=== PATIENT | female | born 1950 | race Caucasian/White ===

== ENCOUNTER → 2017-12-15 | Outpatient (CLI) | payer MEDICARE ==
[~2017-12-15] MED LIST: ACYC-57 PO; ATOR10TA PO; LEVO100T5 PO; MELA1TAB6 PO; MULT1TAB60 PO; VENL75TA PO
[2017-12-15 12:36] LABS: BASOPHILS # (AUTO) 0.04 x10^3/uL (0-0.1); BASOPHILS % (AUTO) 1 % (0-1); EOSINOPHILS # (AUTO) 0.19 x10^3/uL (0-0.4); EOSINOPHILS % (AUTO) 3 % (1-7); LYMPHOCYTES # (AUTO) 1.67 x10^3/uL (1-3.4); LYMPHOCYTES % (AUTO) 23 % (22-44); MD NO; MEAN CORPUSCULAR HEMOGLOBIN 30.1 pg (27.0-34.8); MEAN CORPUSCULAR HGB CONC 33.1 g/dL (32.4-35.8); MEAN CORPUSCULAR VOLUME 90.9 fL (80-100); MEAN PLATELET VOLUME 8.9 fL (7.4-10.4); MONOCYTES # (AUTO) 0.39 x10^3/uL (0.2-0.8); MONOCYTES % (AUTO) 5 % (2-9); NEUTROPHILS # (AUTO) 5.06 x10^3/uL (1.8-6.8); NEUTROPHILS % (AUTO) 69 % (42-75); PLATELET COUNT 271 x10^3/uL (130-400); RED BLOOD COUNT 4.64 x10^6/uL (3.82-5.3); RED CELL DISTRIBUTION WIDTH 13.4 % (9.6-15.2)
[2017-12-15 12:41] LABS: CULTURE INDICATED? YES; MICROSCOPIC INDICATED
== END | disposition home or self-care (01) ==
LOC: STAR 11:15
PROVIDERS: ATTEND Obstetrics & Gynecology Gynecology
DX: Z01.818 Encounter for other preprocedural examination (principal); N81.10 Cystocele, unspecified; N39.3 Stress incontinence (female) (male)
CPT/HCPCS: 36415; 71046; 81001; 85025; 87086; 93005

== ENCOUNTER 2017-12-22 10:50 | Day surgery (SDC) | payer MEDICARE, OTHER ==
[~2017-12-22] VITALS: Ht 167.6 cm; Wt 101.2 kg
[2017-12-22] MEDS ORDERED: LACTATED RINGERS 1,000 ML IV SCH (11:42)
[2017-12-22] MEDS ORDERED: LIDOCAINE-MPF 1%, 2ML INFIL ONE (12:00)
[2017-12-22] MEDS ORDERED: MIDAZOLAM 1 MG/ML, 2ML ONE (13:38)
[2017-12-22] MEDS ORDERED: FENTANYL PF 250 MCG/5ML ONE (13:38)
[2017-12-22] MEDS ORDERED: BUPIVACAINE/PF-EPI 0.25% 1:200K ONE (13:39)
[2017-12-22] MEDS ORDERED: OXYTOCIN 10 UNITS/ML, 1ML ONE (13:39)
[2017-12-22] MEDS ORDERED: ESTROGENS CONJUGATED VAG CRM 0.625MG/1G, 30GM ONE (13:39)
[2017-12-22] MEDS ORDERED: NEOMY/POLYMYXIN B GU IRR. 1 ML IRRIG ONE (13:40)
[2017-12-22] MEDS ORDERED: LIDOCAINE 4%, 4 ML SYR/CANN TP ONE (13:57)
[2017-12-22] MEDS ORDERED: FUROSEMIDE 20 MG/2 ML ONE (13:57)
[2017-12-22] MEDS ORDERED: ONDANSETRON 2MG/ML, 2ML IV PRN (14:00)
[2017-12-22] MEDS ORDERED: PROCHLORPERAZINE 5 MG/ML, 2ML IV PRN (14:00)
[2017-12-22] MEDS ORDERED: FENTANYL PF 100 MCG/2ML IV PRN (14:00)
[2017-12-22] MEDS ORDERED: MORPHINE SULFATE 4 MG/ML, 1ML IVPush PRN (14:00)
[2017-12-22] MEDS ORDERED: ACETAMINOPHEN 325 MG TABLET PO PRN (14:00)
[2017-12-22] MEDS ORDERED: OXYcodone 5 MG/5 ML ORAL.SOL UDC PO PRN (14:00)
[2017-12-22] MEDS ORDERED: ONDANSETRON ODT 8 MG PO PRN (14:00)
[2017-12-22] MEDS ORDERED: ONDANSETRON 2MG/ML, 2ML ONE (14:13)
[2017-12-22] MEDS ORDERED: EPHEDRINE 50 MG/ML, 1ML ONE (14:13)
[2017-12-22] MEDS ORDERED: PROPOFOL 10 MG/ML, 20ML ONE (14:13)
[2017-12-22] MEDS ORDERED: SUCCINYLCHOLINE 20 MG/ML, 10ML ONE (14:13)
[2017-12-22] MEDS ORDERED: DEXAMETHASONE 4 MG/ML, 1ML ONE (14:13)
[2017-12-22] MEDS ORDERED: ROCURONIUM 10MG/ML,5ML ONE (14:13)
[2017-12-22] MEDS ORDERED: GLYCOPYRROLATE 0.2MG/1ML, 5ML ONE (14:13)
[2017-12-22] MEDS ORDERED: CEFAZOLIN 1,000 MG ONE (14:13)
[2017-12-22] MEDS ORDERED: NEOSTIGMINE 1 MG/ML, 10ML ONE (14:13)
[2017-12-22] MEDS ORDERED: BUPIVACAINE/PF-EPI 0.25% 1:200K INFIL ONE (14:38)
[2017-12-22] MEDS ORDERED: FLUORESCEIN SODIUM 500 MG/5 ML IV ONE (14:39)
[2017-12-22] MEDS ORDERED: LIDOCAINE-MPF 2% ,5ML ONE (15:11)
[2017-12-22] MEDS ORDERED: FLUORESCEIN SODIUM 500 MG/5 ML ONE (15:19)
[2017-12-22] MEDS ORDERED: OXYcodone 5 MG/5 ML ORAL.SOL UDC ONE (15:38)
[2017-12-22] MEDS ORDERED: ACETAMINOPHEN 650 MG/20.3 ML UDC ONE (15:39)
== END 2017-12-22 18:25 | disposition home or self-care (01) ==
LOC: OUT 10:50
PROVIDERS: ATTEND Obstetrics & Gynecology Gynecology
DX: N39.3 Stress incontinence (female) (male) (principal); N81.10 Cystocele, unspecified; F32.9 Major depressive disorder, single episode, unspecified; E03.9 Hypothyroidism, unspecified; E78.2 Mixed hyperlipidemia; G47.33 Obstructive sleep apnea (adult) (pediatric); E66.01 Morbid (severe) obesity due to excess calories; J45.909 Unspecified asthma, uncomplicated; F41.9 Anxiety disorder, unspecified; N18.3 Chronic kidney disease, stage 3 (moderate); Z86.010 Personal history of colon polyps; Z72.89 Other problems related to lifestyle
CPT/HCPCS: 57240; 57288; C1771; J0330; J0690; J1100; J1940; J2250; J2405; J2704; J2710; J3010; J3490; J7120; J2590